=== PATIENT | male | born 1995 | race Caucasian/White ===

== ENCOUNTER 2020-11-27 12:25 | Emergency (ER) | payer SELFPAY ==
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
== END 2020-11-27 14:18 | disposition home or self-care (01) ==
LOC: CC.ED 12:25
DX: S00.03XA Contusion of scalp, initial encounter (principal); M54.5 Low back pain; F17.210 Nicotine dependence, cigarettes, uncomplicated; Z88.2 Allergy status to sulfonamides; V00.311A Fall from snowboard, initial encounter
CPT/HCPCS: 70450; 72100; 99284-25